=== PATIENT | female | born 1970 | race Caucasian/White ===

== ENCOUNTER → 2020-12-04 | Outpatient (CLI) | payer OTHER | LOC: EXRD 13:21 | DX: R22.1 Localized swelling, mass and lump, neck (principal) | CPT/HCPCS: 76536 ==

== ENCOUNTER → 2021-03-19 | Outpatient (CLI) | payer OTHER | LOC: EXRD 13:15 | DX: R22.1 Localized swelling, mass and lump, neck (principal) | CPT/HCPCS: 76536 ==